=== PATIENT | male | born 1935 | race Caucasian/White ===

== ENCOUNTER → 2021-09-19 | Outpatient (CLI) | payer MEDICARE, OTHER ==
--- NOTE | 2021-09-19 17:07 | KCIC ---
EXAM: Left wrist, 3 views. HISTORY: Pain. COMPARISON: None. FINDINGS: 3 views of the left wrist are obtained. There is moderate first carpometacarpal joint space narrowing, subchondral sclerosis and spurring. There is chondrocalcinosis involving the triangular f ibrocartilage complex and also involving the radiocarpal joint and first carpometacarpal joint. There is suspected bone demineralization. There is no acute fracture. 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 Electronically signed by: Sharyn Carranza MD (09/19/2021 5:05 PM) [id number]
== END ==
LOC: KCIC 12:53
PROVIDERS: ATTEND Physical Medicine & Rehabilitation
DX: M19.032 Primary osteoarthritis, left wrist (principal); M11.232 Other chondrocalcinosis, left wrist
CPT/HCPCS: 73110